=== PATIENT | female | born 1965 | race Caucasian/White ===

== ENCOUNTER 2018-08-10 21:33 | Emergency (ER) | payer MEDICAID ==
[2018-08-10 22:07] LABS: URINE APPEARANCE SL CLOUDY; URINE BILIRUBIN SMALL (NEGATIVE); URINE BLOOD LARGE (NEGATIVE); URINE COLOR YELLOW; URINE KETONE NEGATIVE (NEGATIVE); URINE LEUKOCYTE ESTERASE NEGATIVE (NEGATIVE); URINE NITRITE NEGATIVE (NEGATIVE); URINE PROTEIN NEGATIVE (NEGATIVE)
[2018-08-10] MEDS ORDERED: 0.9 % SODIUM CHLORIDE 1,000 ML BAG IV ONE ×2 (22:13→23:30)
[2018-08-10 22:18] LABS: URINE CALCIUM OXALATE CRYSTALS 2+ /hpf; URINE EPITHELIAL CELLS 0 - 2 (FEW); URINE RBC 0 - 2 (NONE SEEN); URINE WBC NONE SEEN (0-2/hpf)
[2018-08-10 22:29] LABS: BASO % 0.3 % (0-6); EOS % 1.1 % (0-6); GRAN % 69.8 % (47-80); HEMATOCRIT 42.2 % (35.0-47.0); HEMOGLOBIN 14.2 gm/dl (11.6-16.0); LYMPH % 22.3 % (16-45); MEAN CELL VOLUME 92.7 fl (81-97); MEAN CORPUSCULAR HEMOGLOBIN 31.2 pg (27-33); MEAN CORPUSCULAR HGB CONC 33.6 g/dl (32-36); MEAN PLATELET VOLUME 10.6 fl (7.4-10.4); MONO % 6.5 % (0-9); PLATELET COUNT 303 K/uL (130-400); RED BLOOD COUNT 4.55 M/uL (3.80-5.40); RED CELL DISTRIBUTION WIDTH 13.6 % (11.5-14.5); WHITE BLOOD COUNT W/O DIFF 8.9 K/uL (4.2-12.2)
[2018-08-10] MEDS ORDERED: ACETAMINOPHEN 1,000 MG/100 ML BTL IVPB ONE (22:33)
[2018-08-10] MEDS ORDERED: ONDANSETRON HCL IV 4 MG/2 ML VIAL IVP ONE (22:33)
--- NOTE | 2018-08-10 22:37 | Emergency Department Record ---
History of Present Illness - General Chief Complaint: Abdominal Pain Stated Complaint: ABDOMINAL PAIN Time Seen by Provider: 08/10/18 22:10 Source: Patient, Family Mode of Arrival: Ambulatory Limitations: No limitations - History of Present Illness Initial Comments: 53 yo female presents with nausea, diarrhea, and now right sided abdominal pain. She has had 3-4 episodes of diarrhea the last 2-3 days. No vomiting but she has nausea. No fever. Today she reports she has had a pain on the right side for most of the day. She has a history of hysterectomy but otherwise no abdominal surgery. No rash. No dysuria. MD Complaint: Abdominal pain Onset/Timin -: Minutes(s) Location: RLQ Radiation: None Migration to: No migration Severity: Moderate Severity scale (1-10): 7 Quality: Sharp, Stabbing Consistency: Intermittent Improves With: Nothing Worsens With: Nothing Associated Symptoms: Diarrhea - Related Data Patient : No Home Medications Medication Instructions Recorded Confirmed Last Taken Aspirin Chewable 81 mg PO DAILY 08/10/18 08/10/18 Unknown Bupropion HCl [Wellbutrin Sr] 150 mg PO DAILY 08/10/18 08/10/18 Unknown Levothyroxine Sodium 25 mcg PO DAILY 08/10/18 08/10/18 Unknown Phentermine HCl [Adipex-P] 37.5 mg PO DAILY 08/10/18 08/10/18 Unknown Sertraline HCl [Zoloft] 50 mg PO DAILY 08/10/18 08/10/18 Unknown Simvastatin [Zocor] 40 mg PO DAILY 08/10/18 08/10/18 Unknown Temazepam [Restoril] 15 mg PO QHS 08/10/18 08/10/18 Unknown Previous Rx's Medication Instructions Recorded Ondansetron [Zofran Odt] 4 mg PO Q8H #15 tab.rapdis 08/11/18 Allergies Allergy/AdvReac Type Severity Reaction Status Date / Time No Known Drug Allergies Allergy Verified 08/10/18 21:52 Travel Screening - Travel/Exposure Within Last 30 Days Have you traveled within the last 30 days?: No - Travel/Exposure Within Last Year Have you traveled outside the [place] in the last year?: No - Additonal Travel Details Have you been exposed to anyone with a communicable illness?: No - Travel Symptoms Symptom Screening: None Review of Systems Constitutional: Denies: Chills, Fever, Malaise, Weakness Eyes: Denies: Eye discharge ENT: Denies: Congestion, Ear pain, Throat pain Respiratory: Denies: Cough, Dyspnea, Hemoptysis, Wheezes Cardiovascular: Denies: Chest pain, Palpitations, Syncope Endocrine: Denies: Fatigue Gastrointestinal: Reports: As per HPI, Abdominal pain, Diarrhea, Nausea. Denies : Constipation, Hematemesis, Hematochezia, Melena, Vomiting Genitourinary: Denies: Dysuria Musculoskeletal: Denies: Arthralgia, Back pain, Joint swelling, Myalgia Skin: Denies: Bruising, Change in color, Rash Neurological: Denies: Headache Psychiatric: Denies: Anxiety Hematological/Lymphatic: Denies: Blood Clots, Easy bleeding, Easy bruising Past Medical History - SOCIAL HISTORY Smoking Status: Current every day smoker Alcohol Use: Rare Drug Use: Occasional Drug Use Detail:: Marijuana - RESPIRATORY Hx Respiratory Disorders: No - CARDIOVASCULAR Hx Cardio Disorders: No - NEURO Hx Neuro Disorders: No - GI Hx GI Disorders: No - Hx Genitourinary Disorders: No - ENDOCRINE Hx Endocrine Disorders: Yes Hx Thyroid Disease: Yes (hypothroid) - MUSCULOSKELETAL Hx Musculoskeletal Disorders: No - PSYCH Hx Psych Problems: No - HEMATOLOGY/ONCOLOGY Hx Hematology/Oncology Disorders: No Family Medical History Any Significant Family History?: No Physical Exam - General General Appearance: Alert, Oriented x3, Cooperative, No acute distress Limitations: No limitations - Head Head exam: Atraumatic, Normal inspection - Eye Eye exam: Normal appearance. negative: Conjunctival injection - ENT ENT exam: Normal exam Ear exam: Normal external inspection Nasal Exam: Normal inspection Mouth exam: Normal external inspection - Neck Neck exam: Normal inspection - Respiratory Respiratory exam: Normal lung sounds bilaterally. negative: Respiratory distress - Cardiovascular Cardiovascular Exam: Regular rate, Normal rhythm, Normal heart sounds - GI/Abdominal GI/Abdominal exam: Soft, Tenderness (mild tenderness right lateral abdomen, RLQ , soft, no rebound or guarding). negative: Distended, Guarding - Rectal Rectal exam: Deferred - exam: Deferred - Extremities Extremities exam: Normal inspection, Full ROM, Normal capillary refill. negative: Tenderness - Back Back exam: Reports: Normal inspection, Full ROM. Denies: Muscle spasm, Rash noted, Tenderness - Neurological Neurological exam: Alert, Normal gait, Oriented X3 - Psychiatric Psychiatric exam: Normal affect, Normal mood - Skin Skin exam: Dry, Intact, Normal color, Warm Course - Reevaluation(s) Reevaluation #1: The CBC was reviewed No acute changes The CMP was reviewed HCO3 21 otherwise no acute changes 08/10/18 23:15 On recheck the patient is much improved. No significant pain or nausea. 08/10/18 23:58 08/11/18 01:02 CT was reviewed from [facility]. No evidence of appendicitis or acute diverticulitis , periumbilical hernia with fat, The patient continues to do well. We discussed home care with bland diet We discussed reasons for an immediate return to the ED as well as follow up. 08/11/18 01:08 She was referred to Dr Walker for the umbilical hernia Medical Decision Making - Lab Data Result diagrams: 08/10/18 21:51 08/10/18 21:51 Lab Results 08/10/18 08/10/18 Range/Units 21:51 21:55 WBC 8.9 (4.2-12.2) K/uL RBC 4.55 (3.80-5.40) M/uL Hgb 14.2 (11.6-16.0) gm/dl Hct 42.2 (35.0-47.0) % MCV 92.7 (81-97) fl MCH 31.2 (27-33) pg MCHC 33.6 (32-36) g/dl RDW 13.6 (11.5-14.5) % Plt Count 303 (130-400) K/uL MPV 10.6 H (7.4-10.4) fl Gran % 69.8 (47-80) % Lymphocytes % 22.3 (16-45) % Monocytes % 6.5 (0-9) % Eosinophils % 1.1 (0-6) % Basophils % 0.3 (0-6) % Urine Color Yellow Urine Appearance Sl cloudy Urine pH 5.5 (5.0-8.0) Ur Specific [place] >= 1.030 (1.002-1.030) Urine Protein Negative (NEGATIVE) Urine Glucose (UA) 250 mg/dl H (NEGATIVE) Urine Ketones Negative (NEGATIVE) Urine Blood Large H (NEGATIVE) Urine Nitrite Negative (NEGATIVE) Urine Bilirubin Small H (NEGATIVE) Urine Urobilinogen 2.0 H (0.20 - 1.00) E.U./dL Ur Leukocyte Esterase Negative (NEGATIVE) Urine RBC 0 - 2 (NONE SEEN) Urine WBC None seen (0-2/hpf) Ur Epithelial Cells 0 - 2 (FEW) Calcium Oxalate Crystal 2+ /hpf Disposition Disposition: Discharge Clinical Impression: Diarrhea Disposition: Home, Self-Care Condition: (1) Good Instructions: Acute Diarrhea (ED) Additional Instructions: Return if you have fever, vomiting, uncontrolled pain or any new concerns [place] diet the next 2-3 days Call for follow up with your family doctor as well to discuss this ER visit Prescriptions: Ondansetron [Zofran Odt] 4 mg PO Q8H #15 tab.rapdis Referrals: Neftali Walker [DOCTOR OF OSTEOPATH] - [facility] [Provider Group] Forms: Patient Portal Access Time of Disposition: 01:04 Quality - Quality Measures Quality Measures: N/A - Blood Pressure Screening Does Patient Have Any of the Following: No Blood Pressure Classification: Normal BP Reading Systolic Measurement: 119 Diastolic Measurement: 48 Screening for High Blood Pressure: < Normal BP, F/U Not Required > [G8783]
[2018-08-10 22:38] LABS: BLOOD UREA NITROGEN 14 mg/dL (6-20); CREATININE 0.8 mg/dL (0.5-0.9); EST GLOMERULAR FILTRATION RATE > 60 mL/min
[2018-08-10 22:39] LABS: TOTAL PROTEIN 7.1 g/dL (6.6-8.7)
[2018-08-10 22:41] LABS: GLUCOSE,RANDOM 204 mg/dL (74-109)
[2018-08-10 22:43] LABS: ALT/SGPT 14 U/L (<33)
[2018-08-10 22:44] LABS: ALB/GLOB RATIO 1.6 (1.1-1.8); ALBUMIN 4.4 g/dL (4.0-5.0); ALKALINE PHOSPHATASE 63 U/L (35-104); AST/SGOT 20 U/L (10.0-35.0); LIPASE 35 U/L (13-60)
[2018-08-11] MEDS ORDERED: ONDANSETRON 4 MG ODT TABLET SL ONE (01:03)
--- NOTE | 2018-08-13 11:10 | CT SCAN REPORT ---
EXAM: EMERGENCY CT OF THE ABDOMEN AND PELVIS WITH CONTRAST HISTORY: RIGHT LOWER QUADRANT PAIN BEGINNING EARLIER THE SAME DAY. TECHNIQUE: Axial CT scan of the abdomen and pelvis was performed utilizing both oral and IV contrast. Please see the medical record for contrast specifics. A preliminary report was provided by [facility]. Surgical history: Hysterectomy. FINDINGS: No calcified gallstones are seen within the gallbladder. No definite hepatic, splenic, adrenal, pancreatic, or renal mass identified. The uterus is not identified consistent with the surgical history. Moderate diverticulosis left side of the colon, but no diverticulitis evident. The appendix appears negative with no appendicitis evident. There is soft tissue prominence in the region of the cecum near the ileocecal valve. This measures about 3.7 cm in transverse x 2.8 cm in AP diameter and has a craniocaudal extent of about 5.2 cm. This may just be some focally prominent stool, but is relatively void of any air within to confirm its identity as fecal material and the possibility of a cecal mass cannot absolutely excluded. Follow-up colonoscopy is suggested. Small periumbilical anterior abdominal wall hernia containing adipose tissue, but with some soft tissue standing of the adipose tissue which could represent some inflammatory change associated with this hernia. No free intraperitoneal air or free intraperitoneal fluid identified. Degenerative disk disease at the lumbosacral interspace. IMPRESSION: 1. POSTOP HYSTERECTOMY. 2. MODERATE DIVERTICULOSIS LEFT SIDE OF THE COLON, BUT NO DIVERTICULITIS EVIDENT. 3. NO APPENDICITIS SEEN AND NO FREE AIR OR FREE FLUID EVIDENT. 4. SOFT TISSUE PROMINENCE IN THE REGION OF THE CECUM NEAR THE ILEOCECAL VALVE. THIS IS NONSPECIFIC DESCRIBED ABOVE AND FOLLOW-UP COLONOSCOPY IS SUGGESTED. REPORT OF THIS WAS PHONED BY MYSELF TO THE EMERGENCY DEPARTMENT AT [facility] AT PHONE NUMBER AND DISCUSSED WITH DR. HAMMOND AT THE TIME OF DICTATION AT APPROXIMATELY 10:12 A.M. ON 08/11/18. 5. DEGENERATIVE DISK DISEASE LUMBOSACRAL INTERSPACE. JOB NUMBER: [id number] [facility]
== END 2018-08-11 01:16 | disposition home or self-care (01) ==
LOC: ER 21:33
DX: R19.7 Diarrhea, unspecified (principal); R10.31 Right lower quadrant pain; R11.0 Nausea; F17.210 Nicotine dependence, cigarettes, uncomplicated
CPT/HCPCS: 74177; 80053; 81001; 83690; 85025; 96361; 96374; 96375; 99284; J2405; J7030

== ENCOUNTER 2018-09-17 12:25 | Day surgery (SDC) | payer MEDICAID ==
[2018-09-17] MEDS ORDERED: LIDOCAINE 2% MDV (20MG/ML) 20ML VIAL IV ONE (12:26)
[2018-09-17] MEDS ORDERED: MIDAZOLAM HCL 2MG/2ML VIAL IV ONE (12:26)
[2018-09-17] MEDS ORDERED: PROPOFOL 10 MG/ML VIAL IV ONE (12:26)
--- NOTE | 2018-09-18 09:41 | Operative Note ---
DATE OF SURGERY: 09/17/18 OPERATION: COLONOSCOPY with cold snare polypectomy and photo. PREOPERATIVE DIAGNOSIS: Right lower quadrant pain and abnormal CT scan suggesting possible cecal mass. POSTOPERATIVE DIAGNOSES: 1. Sigmoid diverticulosis, mild. 2. Sigmoid colon polyp. 3. No mass seen in the area of abnormality seen on CT scan, perhaps related to stool retention. 4. Normal-appearing terminal ileum. PREPARATION QUALITY: Good. ESTIMATED BLOOD LOSS: Minimum. SPECIMENS: Sigmoid colon polyp. COMPLICATIONS: None apparent. PROCEDURE: After informed consent was obtained from the patient, the patient was placed in the left lateral decubitus position in the endoscopy suite, sedated and monitored by the department of anesthesia. Digital rectal examination was unremarkable. A well-lubricated [id number] colonoscope was inserted into the rectum and advanced to the cecum. Preparation quality was good. The cecum, ileocecal valve, and appendiceal orifice appeared unremarkable. No mass lesions were seen. Photographs were taken. The terminal ileum was inspected and appeared unremarkable as well. The cecum and proximal ascending colon were again inspected and were unremarkable. The ascending colon, transverse colon, and descending colon were unremarkable. There were scattered sigmoid diverticula. There was also a diminutive sessile sigmoid polyp approximately 4 mm in diameter. It was removed with a cold snare and retrieved. Minimal bleeding was noted. The rectum was unremarkable in forward and J-turn views. The endoscope was straightened, the rectal ampulla deflated, and the endoscope was removed. RECOMMENDATIONS: The patient should follow a high-fiber diet. She was encouraged to stop smoking. She will require repeat colonoscopy in 5-10 years pending tissue histology. As always, thank you for allowing me to participate in the healthcare of your patients. CC: Dr. Katelyn ROBERT
== END 2018-09-17 13:43 | disposition home or self-care (01) ==
LOC: HOP 12:25
PROVIDERS: ATTEND Internal Medicine Gastroenterology
DX: R93.89 Abnormal findings on diagnostic imaging of other specified body structures (principal); R10.31 Right lower quadrant pain; D12.5 Benign neoplasm of sigmoid colon; K57.30 Diverticulosis of large intestine without perforation or abscess without bleeding; E78.00 Pure hypercholesterolemia, unspecified; E03.9 Hypothyroidism, unspecified

== ENCOUNTER 2018-09-28 07:22 | Day surgery (SDC) | payer MEDICAID ==
[~2018-09-28 07:22] MED LIST: ACETAMINOPHEN 1,000 MG/100 ML BTL IV ONE; CEFAZOLIN 1 Gram 1 GM/50 ML BAG IVPB ONE
[2018-09-28] MEDS ORDERED: PROPOFOL 10 MG/ML VIAL IV ONE (07:23)
[2018-09-28] MEDS ORDERED: KETOROLAC 30 MG/ML VIAL IVP ONE (07:23)
[2018-09-28] MEDS ORDERED: BUPIVACAINE 0.25% W/EPI MPF 30ML VIAL IVP ONE (07:23)
[2018-09-28] MEDS ORDERED: HYDROCODONE/APAP 5/325MG TABLET PO ONE (07:23)
[2018-09-28] MEDS ORDERED: FENTANYL PF 100MCG/2ML VIAL IV ONE (07:23)
[2018-09-28] MEDS ORDERED: MIDAZOLAM HCL 2MG/2ML VIAL IV ONE (07:23)
[2018-09-28] MEDS ORDERED: LIDOCAINE 2% MDV (20MG/ML) 20ML VIAL IV ONE (07:23)
[2018-09-28] MEDS ORDERED: ONDANSETRON HCL IV 4 MG/2 ML VIAL IVP ONE (07:23)
[2018-09-28] MEDS ORDERED: SEVOFLURANE 250 ML INH ONE (07:23)
--- NOTE | 2018-09-29 09:57 | Operative Note ---
DATE OF SURGERY: 09/28/2018 Surgeon: Neftali Walker DO PREOPERATIVE DIAGNOSIS: Incarcerated umbilical hernia. POSTOPERATIVE DIAGNOSIS: Incarcerated umbilical hernia. OPERATION: Open umbilical herniorrhaphy. Indication: The patient is a 53-year-old female who had pain and bulging just below her navel. On exam, she had what appeared to be an incarcerated hernia. We did discuss repair. Risks, benefits, and alternatives were discussed. Risks include bleeding, infection, acute or chronic pain, recurrence. She understood this fully. Thereafter, consent was signed and questions answered. PROCEDURE: She was taken to the operating room and placed in a supine position. General anesthesia was administered per the department of anesthesia. The patient's abdomen was prepped and draped in the usual fashion. Adequate timeout was performed. She did receive preoperative antibiotic. At this time, the periumbilical region was anesthetized with a total of 10 mL of 0.25% Sensorcaine with epinephrine. A 3.5 cm curvilinear infraumbilical incision was made. This was carried down to the anterior rectus fascia. Umbilical stalk was encircled and dissected free from underlying fascia. The hernia was just inferior to the navel. There was a pinpoint hernia at the navel. There was a ventral hernia just inferior to this measuring about 8 mm. Clean circumferential fascial edges were obtained. Each defect was closed primarily with 0 Ethibond. At this time, the skin was tacked down to fascia with 2-0, Steri-Strips, and sterile bandage applied. She tolerated procedure well. FINDINGS ON SURGERY: Incarcerated ventral hernia repaired as above. CC: Katelyn ROBERT
== END 2018-09-28 10:16 | disposition home or self-care (01) ==
LOC: SUR 07:22
PROVIDERS: ATTEND Surgery
DX: K42.0 Umbilical hernia with obstruction, without gangrene (principal); E78.00 Pure hypercholesterolemia, unspecified; G47.33 Obstructive sleep apnea (adult) (pediatric)
CPT/HCPCS: 49587; 00750; J1885; J2405; J3010; J0690